=== PATIENT | male | born 1960 | race Caucasian/White ===

== ENCOUNTER 2018-04-21 18:48 | Emergency (ER) | payer BC ==
[~2018-04-21] VITALS: Ht 193 cm; Wt 128.3 kg
[2018-04-21] MEDS ORDERED: ULTRACET1 TABLET PO (22:38)
[2018-04-21] MEDS ORDERED: VIBRAMYCIN100 MG PO (22:38)
[2018-04-21] MEDS ORDERED: MOTRIN600 MG PO (22:38)
[2018-04-21 22:51] VITALS: BP 148/86
== END 2018-04-21 22:53 | disposition home or self-care (01) ==
LOC: EME 18:48 → EXP 18:48
PROC: 0HQGXZZ Repair Left Hand Skin, External Approach (ICD-10-PCS; principal; 2018-04-21)
DX: S62.631B Displaced fracture of distal phalanx of left index finger, initial encounter for open fracture (principal); W29.3XXA Contact with powered garden and outdoor hand tools and machinery, initial encounter; Y93.H2 Activity, gardening and landscaping
CPT/HCPCS: 73140; 99281; 99283; S0020

== ENCOUNTER 2018-04-25 17:54 | Emergency (ER) | payer BC ==
[~2018-04-25] VITALS: Ht 182.9 cm; Wt 128.4 kg
[~2018-04-25 17:54] MED LIST: MOTRIN600 MG PO; ULTRACET1 TABLET PO; VIBRAMYCIN100 MG PO
[2018-04-25 19:55] VITALS: BP 155/97
== END 2018-04-25 19:56 | disposition home or self-care (01) ==
LOC: EME 17:54 → EXP 17:54
DX: S61.211D Laceration without foreign body of left index finger without damage to nail, subsequent encounter (principal)
CPT/HCPCS: 99281; 99283

== ENCOUNTER 2018-05-12 11:38 | Emergency (ER) | payer BC ==
[~2018-05-12] VITALS: Ht 182.9 cm; Wt 128.2 kg
[2018-05-12 12:31] VITALS: BP 152/90
== END 2018-05-12 12:32 | disposition home or self-care (01) ==
LOC: EME 11:38
DX: S61.211D Laceration without foreign body of left index finger without damage to nail, subsequent encounter (principal); W29.3XXD Contact with powered garden and outdoor hand tools and machinery, subsequent encounter
CPT/HCPCS: 99281; 99283